=== PATIENT | female | born 1990 | race African-American/Black ===

== ENCOUNTER 2020-08-25 15:27 | Emergency (ER) | payer MEDICAID ==
[~2020-08-25] VITALS: Ht 154.9 cm; Wt 118.0 kg
[2020-08-25 15:38] VITALS: BP 141/78
[2020-08-25] MEDS ORDERED: CIPR7.5D RIGHT EAR (15:53)
--- NOTE | 2020-08-25 15:53 | PHYS DOC ---
Past Medical History Past Medical History: No Pertinent History Past Surgical History: Cholecystectomy, Smoking Status: Never Smoker Alcohol Use: Occasionally General Adult EDM: Chief Complaint: EARACHE/EAR PAIN HPI: HPI: Patient is a 30 year old female who presents with 1 week of right ear pain and muffled hearing. Patient denies fever, nausea, vomiting, sore throat, nasal congestion, body aches, headache, dizziness. She rates her pain at an 8 out of 10 aching pain. She states she is been using [id number] ear drops. Review of Systems: Review of Systems: Constitutional: Denies fever or chills. [] Eyes: Denies change in visual acuity. [] HENT: Denies nasal congestion or sore throat. + Right ear pain, + muffled hearing [] Respiratory: Denies cough or shortness of breath. [] Cardiovascular: Denies chest pain or edema. [] GI: Denies abdominal pain, nausea, vomiting, bloody stools or diarrhea. [] : Denies dysuria. [] Musculoskeletal: Denies back pain or joint pain. [] Integument: Denies rash. [] Neurologic: Denies headache, focal weakness or sensory changes. [] Endocrine: Denies polyuria or polydipsia. [] Lymphatic: Denies swollen glands. [] Psychiatric: Denies depression or anxiety. [] Heart Score: Risk Factors: Risk Factors: DM, Current or recent (<one month) smoker, HTN, HLP, family history of CAD, obesity. Risk Scores: Score 0 - 3: 2.5% MACE over next 6 weeks - Discharge Home Score 4 - 6: 20.3% MACE over next 6 weeks - Admit for Clinical Observation Score 7 - 10: 72.7% MACE over next 6 weeks - Early Invasive Strategies Allergies: Allergies: Allergies Coded Allergies Type Severity Reaction Last Updated Verified No Known Drug Allergies 08/25/20 No Physical Exam: PE: Constitutional: Well developed, well nourished, no acute distress, non-toxic appearance. [] HENT: Normocephalic, atraumatic, bilateral external ears normal, oropharynx moist, no oral exudates, nose normal. Right ear otitis externa. Eardrum intact but reddened. [] Eyes: PERRLA, EOMI, conjunctiva normal, no discharge. [] Neck: Normal range of motion, no tenderness, supple, no stridor. [] Cardiovascular:Heart rate regular rhythm, no murmur [] Lungs & Thorax: Bilateral breath sounds clear to auscultation [] Abdomen: Bowel sounds normal, soft, no tenderness, no masses, no pulsatile masses. [] Skin: Warm, dry, no erythema, no rash. [] Back: No tenderness, no CVA tenderness. [] Extremities: No tenderness, no cyanosis, no clubbing, ROM intact, no edema. [] Neurologic: Alert and oriented X 3, normal motor function, normal sensory function, no focal deficits noted. [] Psychologic: Affect normal, judgement normal, mood normal. [] Current Patient Data: Vital Signs: Vital Signs Date Time Temp Pulse Resp B/P (MAP) Pulse Ox O2 Delivery O2 Flow Rate FiO2 08/25/20 15:38 98.1 74 16 141/78 (99) 99 Room Air 98.1 EKG: EKG: [] Radiology/Procedures: Radiology/Procedures: [] Course & Med Decision Making: Course & Med Decision Making Pertinent Labs and Imaging studies reviewed. (See chart for details) See HPI. Alert and oriented x4. Ambulatory with a steady gait. Speaks in full clear sentences. Afebrile. Right ear canal is reddened and swollen and tender with examination. Eardrum intact but red. No drainage coming from ear. Patient will be giving antibiotic drops. [] Dragon Disclaimer: Dragon Disclaimer: This electronic medical record was generated, in whole or in part, using a voice recognition dictation system. Departure Departure Impression: Primary Impression: Otitis externa Qualified Codes: H60.501 - Unspecified acute noninfective otitis externa, right ear Disposition: 01 DC HOME SELF CARE/HOMELESS Condition: STABLE Referrals: NO PCP (PCP) Patient Instructions: Otitis Externa Additional Instructions: Follow-up with primary care provider. Take ibuprofen for your pain. Also put a heating pad over the earlobes that helps with pain to. Before you get into the shower put a cotton ball in the ear. Use prescription as prescribed. Scripts Ciprofloxacin Hcl/Dexameth (CIPRODEX OTIC SUSPENSION) 7.5 Ml Drops.susp 4 DROP RIGHT EAR BID for 10 Days, #1 BOTTLE Prov: DAVY LUCAS ORDER DESK CLERK 08/25/20 DAVY LUCAS APRN Aug 25, 2020 15:53
== END 2020-08-25 16:01 | disposition home or self-care (01) ==
LOC: ER 15:27
DX: H60.8X1 Other otitis externa, right ear (principal); Z90.49 Acquired absence of other specified parts of digestive tract; Z98.890 Other specified postprocedural states
CPT/HCPCS: 99283